=== PATIENT | male | born 1965 | race African-American/Black ===

== ENCOUNTER 2017-05-10 13:55 | Inpatient (IN) | payer OTHER ==
[2017-05-10 16:52] VITALS: BMI 31.4
--- NOTE | 2017-05-10 18:09 | HP ---
CIWA Score - CIWA Score Nausea/Vomitin-Mild Nausea/No Vomiting Muscle Tremors: 4-Moderate,w/Arms Extend Anxiety: 3 Agitation: 4-Moderately Restless Paroxysmal Sweats: 1-Minimal Palms Moist Orientation: 1-Uncertain about Date Tacttile Disturbances: 0-None Auditory Disturbances: 0-None Visual Disturbances: 0-None Headache: 0-None Present CIWA-Ar Total Score: 14 Admission ROS BHS - HPI Chief Complaint: withdrawal sx Allergies/Adverse Reactions: Allergies Allergy/AdvReac Type Severity Reaction Status Date / Time benztropine mesylate Allergy Severe seizure Verified 05/10/17 18:04 [From Cogentin] haloperidol [From Haldol] Allergy Severe seizure Verified 05/10/17 18:04 haloperidol lactate Allergy Severe seizure Verified 05/10/17 18:04 [From Haldol] History of Present Illness: 51 years old male with long history of alcohol pcp nicotine dependence has hypertension and tooth filling out last month, bipolar ii is admitted to detox Exam Limitations: No Limitations - Ebola screening Have you traveled outside of the country in the last 21 days: No (N) Have you had contact with anyone from an Ebola affected area: No Have you been sick,other than usual withdrawal symptoms: No Do you have a fever: No - Review of Systems Constitutional: Weight Stable EENT: reports: Dental Problems (right lower tooth filling out) Respiratory: reports: No Symptoms reported Cardiac: reports: No Symptoms Reported GI: reports: Nausea, Poor Fluid Intake, Abdominal cramping : reports: No Symptoms Reported Musculoskeletal: reports: No Symptoms Reported Integumentary: reports: No Symptoms Reported Neuro: reports: Tremors Endocrine: reports: No Symptoms Reported Hematology: reports: No Symptoms Reported Psychiatric: reports: Judgement Intact, Anxious, Depressed Other Systems: Reviewed and Negative Patient History - Patient Medical History Hx Anemia: No Hx Asthma: No Hx Chronic Obstructive Pulmonary Disease (COPD): No Hx Cancer: No Hx Cardiac Disorders: No Hx Congestive Heart Failure: No Hx Hypertension: Yes Hx Hypercholesterolemia: No Hx Pacemaker: No HX Cerebrovascular Accident: No Hx Seizures: No Hx Dementia: No Hx Diabetes: No Hx Gastrointestinal Disorders: No Hx Liver Disease: No Hx Genitourinary Disorders: No Hx Sexually Transmitted Disorders: No Hx Renal Disease (ESRD): No Hx Thyroid Disease: No Hx Human Immunodeficiency Virus (HIV): No Hx Hepatitis C: No Hx Depression: No Hx Suicide Attempt: Yes (1990 jump from bridge) Hx Bipolar Disorder: Yes Hx Schizophrenia: No - Patient Surgical History Past Surgical History: Yes Hx Neurologic Surgery: No Hx Cataract Extraction: No Hx Cardiac Surgery: No Hx Lung Surgery: No Hx Breast Surgery: No Hx Breast Biopsy: No Hx Abdominal Surgery: Yes (colon ca 2011) Hx Appendectomy: No Hx Cholecystectomy: No Hx Genitourinary Surgery: No Hx Orthopedic Surgery: No Anesthesia Reaction: No - PPD History Previous Implant?: Yes Documented Results: Negative w/o proof Implanted On Prior [facility] Admission?: No PPD to be Administered?: Yes - Smoking Cessation Smoking history: Current every day smoker Have you smoked in the past 12 months: Yes Aproximately how many cigarettes per day: 10 Cigars Per Day: 0 Hx Chewing Tobacco Use: No Initiated information on smoking cessation: Yes 'Breaking Loose' booklet given: 05/10/17 - Substance & Tx. History Hx Alcohol Use: Yes Hx Substance Use: No Substance Use Type: Alcohol Hx Substance Use Treatment: No Family Disease History - Family Disease History Family Disease History: Heart Disease: Father (), Mother (), Other: Father, Mother Admission Physical Exam BHS - Vital Signs Vital Signs: Vital Signs - 24 hr 05/10/17 16:50 Temperature 97.6 F Pulse Rate 109 H Respiratory 203 H Rate Blood Pressure 144/82 - Physical General Appearance: Yes: Nourished, Appropriately Dressed, Alcohol on Breath, Tremorous, Irritable, Sweating, Anxious HEENTM: Yes: Hearing grossly Normal, Normal ENT Inspection, Normocephalic, Normal Voice Respiratory: Yes: Chest Non-Tender, Lungs Clear, Normal Breath Sounds, No Respiratory Distress, No Accessory Muscle Use Neck: Yes: Supple, Trachea in good position Breast: Yes: Breasts Symetrical Cardiology: Yes: Regular Rhythm, S1, S2, Tachycardia (pcp) Abdominal: Yes: Normal Bowel Sounds, Non Tender, Soft Genitourinary: Yes: Within Normal Limits Back: Yes: Normal Inspection Musculoskeletal: Yes: full range of Motion, Gait Steady Extremities: Yes: Normal Range of Motion, Non-Tender, Tremors Neurological: Yes: Alert, Motor Strength 5/5, Normal Response, Depressed Affect Integumentary: Yes: Warm Lymphatic: Yes: Within Normal Limits - Diagnostic (1) Alcohol dependence with uncomplicated withdrawal Current Visit: Yes Status: Acute (2) Hypertension Current Visit: Yes Status: Chronic Qualifiers: Hypertension type: essential hypertension Qualified Code(s): I10 - Essential (primary) hypertension (3) Chronic low back pain Current Visit: Yes Status: Chronic Qualifiers: Back pain laterality: bilateral Sciatica presence: without sciatica Qualified Code(s): M54.5 - Low back pain; G89.29 - Other chronic pain; G89.29 - Other chronic pain (4) Bipolar II disorder Current Visit: Yes Status: Suspected (5) History of colon cancer Current Visit: No Status: Resolved (6) Nicotine dependence Current Visit: Yes Status: Acute Qualifiers: Nicotine product type: cigarettes Substance use status: in withdrawal Qualified Code(s): F17.213 - Nicotine dependence, cigarettes, with withdrawal Cleared for Admission S - Detox or Rehab [facility] Level of Care: Medically Managed Detox Regimen/Protocol: Librium [facility] Breath Alcohol Content Breath Alcohol Content: 0.186 Urine Drug Screen - Results Drug Screen Negative: No Urine Drug Screen Results: PCP-Phencyclidine
[2017-05-10] MEDS ORDERED: chlordiazePOXIDE HCL 25 MG CAPSULE PO PRN (18:16)
[2017-05-10] MEDS ORDERED: guaiFENesin/D-METHORPHAN HB 10 ML UNIT-DOSE CUPS PO PRN (18:16)
[2017-05-10] MEDS ORDERED: MENTHOL/PHENOL 1 EACH UD MM PRN (18:16)
[2017-05-10] MEDS ORDERED: MAGNESIUM CITRATE 300 ML BOTTLE PO PRN (18:16)
[2017-05-10] MEDS ORDERED: P-EPHED 60MG/TRIPROLIDI 2.5MG TABLET PO PRN (18:16)
[2017-05-10] MEDS ORDERED: NICOTINE POLACRILEX 2 MG GUM BUC PRN (18:16)
[2017-05-10] MEDS ORDERED: ACETAMINOPHEN 325 MG TABLET (FP) PO PRN (18:16)
[2017-05-10] MEDS ORDERED: MAG HYDROX/AL HYDROX/SIMETH 30 ML UNIT-DOSE CUP PO PRN (18:16)
[2017-05-10] MEDS ORDERED: IBUPROFEN 400 MG TABLET (FP) PO PRN (18:16)
[2017-05-10] MEDS ORDERED: MAGNESIUM HYDROX 2400MG/30ML ORAL SUSPENSION 30 ML CUP PO PRN (18:16)
[2017-05-10] MEDS ORDERED: LIDOCAINE VISCOUS 2% ORAL/TOP 20 ML UNIT-DOSE CUP MM PRN (18:26)
[2017-05-10] MEDS: amLODIPine BESYLATE 10 MG TABLET (FP) PO SCH (21:20)
[2017-05-10] MEDS: THIAMINE HCL 100 MG TABLET (FP) PO SCH (21:20)
[2017-05-10] MEDS: chlordiazePOXIDE HCL 25 MG CAPSULE PO SCH (22:00)
[2017-05-10 22:28] LABS: URINE APPEARANCE CLEAR; URINE BILIRUBIN NEGATIVE (NEGATIVE); URINE BLOOD NEGATIVE (NEGATIVE); URINE COLOR YELLOW; URINE GLUCOSE (UA) NEGATIVE (NEGATIVE); URINE KETONE NEGATIVE (NEGATIVE); URINE NITRITE NEGATIVE (NEGATIVE); URINE PROTEIN NEGATIVE (NEGATIVE); URINE UROBILINOGEN NEGATIVE mg/dL (0.2-1.0)
[2017-05-10] MEDS: MINERAL OIL/PETROLAT/WATER TOPICAL CREAM 113 GM JAR TP SCH (23:15)
[2017-05-11] MEDS: chlordiazePOXIDE HCL 25 MG CAPSULE PO SCH ×4 (05:02→22:16)
--- NOTE | 2017-05-11 08:37 | CONSULT ---
[facility] Psychiatric Consult - Data Date of interview: 05/11/17 Admission source: [facility] Identifying data: This is 51 years old male withpsychiatric hospitalization history,mhistory of Bipolar disorder, intoxicated with: Alcohol, Nicotine Substance Abuse History: - Smoking Cessation. Smoking history: Current every day smoker. Have you smoked in the past 12 months: Yes. Aproximately how many cigarettes per day: 10. Cigars Per Day: 0. Hx Chewing Tobacco Use: No. Initiated information on smoking cessation: Yes. 'Breaking Loose' booklet given : 05/10/17. - Substance & Tx. History. Hx Alcohol Use: Yes. Hx Substance Use : No. Substance Use Type: Alcohol. Hx Substance Use Treatment: No Medical History: HTN, LBP, History OF Colon Cancer Psychiatric History: Patiebt reports history of Bipolar Disorder with most recent psychiatric admission few months ago at [facility];, reports taking prior to admission: Seroquel 200mg po qhs. Lexapro 20mg poqd Physical/Sexual Abuse/Trauma History: Denies Additional Comment: Seroquel 200mg po qhs. Lexapro 20mg poqd Mental Status Exam - Mental Status Exam Alert and Oriented to: Person Cognitive Function: Fair Patient Appearance: Unkempt Mood: Sad Affect: Flat Patient Behavior: Sedated Speech Pattern: Delayed Voice Loudness: Mildly Soft/Quiet Thought Process: Circumstantial Thought Disorder: Being Controlled Hallucinations: Denies Suicidal Ideation: Denies Homicidal Ideation: Denies Insight/Judgement: Fair Sleep: Difficulty falling asleep Appetite: Fair Muscle strength/Tone: Mild Hypotonicity Gait/Station: Shuffling Additional Comments: Seroquel 200mg po qhs. Lexapro 20mg poqd Psychiatric Findings - Problem List ([place] 1, 2,3) (1) Alcohol dependence with uncomplicated withdrawal Current Visit: Yes Status: Acute (2) Nicotine dependence Current Visit: Yes Status: Acute Qualifiers: Nicotine product type: cigarettes Substance use status: in withdrawal Qualified Code(s): F17.213 - Nicotine dependence, cigarettes, with withdrawal (3) Bipolar II disorder Current Visit: Yes Status: Suspected (4) Alcohol dependence Current Visit: No Status: Acute (5) Bipolar disorder Current Visit: No Status: Acute (6) Drug-induced mood disorder Current Visit: No Status: Acute - Initial Treatment Plan Initial Treatment Plan: Seroquel 200mg po qhs. Lexapro 20mg poqd
[2017-05-11] MEDS ORDERED: TRIMETHOBENZAMIDE HCL 200MG/2ML INJ IM PRN (09:22)
[2017-05-11] MEDS ORDERED: TRIMETHOBENZAMIDE HCL 200MG/2ML INJ IM ONE (09:30)
[2017-05-11 10:17] LABS: MCHC 33.8 g/dl (32.0-35.9); MEAN CELL VOLUME 100.5 fl (80-96); MEAN PLT VOLUME 8.3 fl (7.5-11.1); PLATELET COUNT 136 K/MM3 (134-434); RDW 15.6 % (11.9-15.9)
[2017-05-11 10:28] LABS: WHITE BLOOD COUNT 1.6 K/mm3 (4.0-10.0)
[2017-05-11 11:12] LABS: ALBUMIN 3.1 g/dl (3.4-5.0); ALK PHOS 176 U/L (45-117); ANION GAP 11 (8-16); BILIRUBIN,TOTAL 1.2 mg/dL (0.2-1.0); CALCIUM 8.3 mg/dL (8.5-10.1); CO2 25 mmol/L (21-32); GLUCOSE,RANDOM 80 mg/dL (74-106); SGOT/AST 217 U/L (15-37); SGPT/ALT 46 U/L (12-78); TOT PROT 6.5 g/dl (6.4-8.2)
[2017-05-11 11:18] LABS: URINE LEUK ESTERASE Negative (NEGATIVE)
[2017-05-11] MEDS: ESCITALOPRAM OXALATE 20 MG TABLET (FP) PO SCH (11:29)
[2017-05-11] MEDS: NICOTINE 14 MG/24 HOURS TOPICAL PATCH TD SCH (11:29)
[2017-05-11] MEDS: PRENATAL VITAMINS W/ FOLIC ACID TABLET (FP) PO SCH (11:29)
[2017-05-11] MEDS: LISINOPRIL 10 MG TABLET (FP) PO SCH (11:32)
--- NOTE | 2017-05-11 12:37 | EKG ---
Test Reason : Blood Pressure : / mmHG Vent. Rate : 093 BPM Atrial Rate : 093 BPM P-R Int : 150 ms QRS Dur : 086 ms QT Int : 360 ms P-R-T Axes : 065 055 061 degrees QTc Int : 447 ms NORMAL SINUS RHYTHM MINIMAL VOLTAGE CRITERIA FOR LVH, MAY BE NORMAL VARIANT BORDERLINE ECG NO PREVIOUS ECGS AVAILABLE Confirmed by KHURRAM LINCOLN MD ([id number]) on 05/11/2017 12:36:38 PM Referred By: Confirmed By:KHURRAM LINCOLN MD
--- NOTE | 2017-05-11 14:25 | PN ---
[facility] CIWA - CIWA Score Nausea/Vomitin Muscle Tremors: None Anxiety: 4-Mod. Anxious/Guarded Agitation: 1-Slight > Activity Paroxysmal Sweats: 3 Orientation: 0-Oriented Tacttile Disturbances: 3-Moderate Itch/Numb/Burn Auditory Disturbances: 0-None Visual Disturbances: 2-Mild Sensitivity Headache: 0-None Present CIWA-Ar Total Score: 19 BHS Progress Note (SOAP) Subjective: Interrupted Sleep, Vomiting, Diarrhea, Anxious, Stomach Cramping, Body Aches. Objective: PT. A & O X 3, OBSERVED AMBULATING ON UNIT. NO ACUTE DISTRESS. 05/11/17 14:20 Vital Signs Temperature 97.3 F L 05/11/17 13:17 Pulse Rate 110 H 05/11/17 13:17 Respiratory Rate 20 05/11/17 13:17 Blood Pressure 138/89 05/11/17 13:17 O2 Sat by Pulse Oximetry (%) Laboratory Tests 05/10/17 05/11/17 05/11/17 19:13 04:00 04:00 WBC 1.6 L* RBC 3.59 L Hgb 12.2 Hct 36.1 MCV 100.5 H MCH 34.0 H MCHC 33.8 RDW 15.6 Plt Count 136 MPV 8.3 Sodium 136 Potassium 3.9 Chloride 100 Carbon Dioxide 25 Anion Gap 11 BUN 12 Creatinine 1.0 Creat Clearance w eGFR > 60 Random Glucose 80 Calcium 8.3 L Total Bilirubin 1.2 H AST 217 H ALT 46 Alkaline Phosphatase 176 H Total Protein 6.5 Albumin 3.1 L Urine Color Yellow Urine Appearance Clear Urine pH 5.0 Ur Specific [place] 1.016 Urine Protein Negative Urine Glucose (UA) Negative Urine Ketones Negative Urine Blood Negative Urine Nitrite Negative Urine Bilirubin Negative Urine Urobilinogen Negative Ur Leukocyte Esterase Negative RPR Titer 05/11/17 04:00 WBC RBC Hgb Hct MCV MCH MCHC RDW Plt Count MPV Sodium Potassium Chloride Carbon Dioxide Anion Gap BUN Creatinine Creat Clearance w eGFR Random Glucose Calcium Total Bilirubin AST ALT Alkaline Phosphatase Total Protein Albumin Urine Color Urine Appearance Urine pH Ur Specific [place] Urine Protein Urine Glucose (UA) Urine Ketones Urine Blood Urine Nitrite Urine Bilirubin Urine Urobilinogen Ur Leukocyte Esterase RPR Titer Nonreactive LABS NOTED. WHEN ASKED, PATIENT REPORTS HISTORY OF LOW WBC COUNT. 05/11/17 14:23 Assessment: 05/11/17 14:20 WITHDRAWAL SYMPTOMS. LEUKOPENIA. 05/11/17 14:23 Plan: CONTINUE DETOX. TIGAN IM FOR NAUSEA / VOMITING. LISINOPRIL, 10 MG PO DAILY PERSISTENTLY ELEVATED BP. PRN IMMODIUM FOR DIARRHEA.
[2017-05-11] MEDS ORDERED: ONDANSETRON *ODT* 4 MG TABLET SL ONE ×2 (18:15)
[2017-05-11] MEDS: QUEtiapine FUMARATE 200 MG TABLET PO SCH (22:13)
[2017-05-11] MEDS: THIAMINE HCL 100 MG TABLET (FP) PO SCH (22:13)
[2017-05-11] MEDS: amLODIPine BESYLATE 10 MG TABLET (FP) PO SCH (22:13)
[2017-05-11] MEDS: MINERAL OIL/PETROLAT/WATER TOPICAL CREAM 113 GM JAR TP SCH (22:14)
[2017-05-12] MEDS: chlordiazePOXIDE HCL 25 MG CAPSULE PO SCH ×3 (06:47→17:01)
[2017-05-12] MEDS: PRENATAL VITAMINS W/ FOLIC ACID TABLET (FP) PO SCH (10:13)
[2017-05-12] MEDS: LISINOPRIL 10 MG TABLET (FP) PO SCH (10:13)
[2017-05-12] MEDS: ESCITALOPRAM OXALATE 20 MG TABLET (FP) PO SCH (10:13)
[2017-05-12] MEDS: NICOTINE 14 MG/24 HOURS TOPICAL PATCH TD SCH (10:14)
[2017-05-12] MEDS: LOPERAMIDE HCL 2 MG CAPSULE PO PRN ×2 (10:58→20:02)
--- NOTE | 2017-05-12 13:40 | PN ---
S CIWA - CIWA Score Nausea/Vomitin Muscle Tremors: None Anxiety: 4-Mod. Anxious/Guarded Agitation: 3 Paroxysmal Sweats: 3 Orientation: 0-Oriented Tacttile Disturbances: 2-Mild Itch/Numbness/Burn Auditory Disturbances: 0-None Visual Disturbances: 0-None Headache: 3-Moderate CIWA-Ar Total Score: 20 BHS Progress Note (SOAP) Subjective: Stomach Cramping, Vomiting, Diarrhea, H/A, Body Aches, Sweating. Objective: PT. A & O X 3, OBSERVED AMBULATING ON UNIT. NO ACUTE DISTRESS. 05/12/17 13:38 Vital Signs Temperature 97.9 F 05/12/17 13:27 Pulse Rate 99 H 05/12/17 13:27 Respiratory Rate 18 05/12/17 13:27 Blood Pressure 113/78 05/12/17 13:27 O2 Sat by Pulse Oximetry (%) Laboratory Tests 05/10/17 05/11/17 05/11/17 19:13 04:00 04:00 WBC 1.6 L* RBC 3.59 L Hgb 12.2 Hct 36.1 MCV 100.5 H MCH 34.0 H MCHC 33.8 RDW 15.6 Plt Count 136 MPV 8.3 Sodium 136 Potassium 3.9 Chloride 100 Carbon Dioxide 25 Anion Gap 11 BUN 12 Creatinine 1.0 Creat Clearance w eGFR > 60 Random Glucose 80 Calcium 8.3 L Total Bilirubin 1.2 H AST 217 H ALT 46 Alkaline Phosphatase 176 H Total Protein 6.5 Albumin 3.1 L Urine Color Yellow Urine Appearance Clear Urine pH 5.0 Ur Specific [place] 1.016 Urine Protein Negative Urine Glucose (UA) Negative Urine Ketones Negative Urine Blood Negative Urine Nitrite Negative Urine Bilirubin Negative Urine Urobilinogen Negative Ur Leukocyte Esterase Negative RPR Titer 05/11/17 04:00 WBC RBC Hgb Hct MCV MCH MCHC RDW Plt Count MPV Sodium Potassium Chloride Carbon Dioxide Anion Gap BUN Creatinine Creat Clearance w eGFR Random Glucose Calcium Total Bilirubin AST ALT Alkaline Phosphatase Total Protein Albumin Urine Color Urine Appearance Urine pH Ur Specific [place] Urine Protein Urine Glucose (UA) Urine Ketones Urine Blood Urine Nitrite Urine Bilirubin Urine Urobilinogen Ur Leukocyte Esterase RPR Titer Nonreactive LABS NOTED. Assessment: 05/12/17 13:38 WITHDRAWAL SYMPTOMS. LEUKOPENIA. 05/12/17 13:40 Plan: CONTINUE DETOX. PRN TIGAN IM FOR NAUSEA / VOMITING.
[2017-05-12] MEDS: THIAMINE HCL 100 MG TABLET (FP) PO SCH (22:16)
[2017-05-12] MEDS: amLODIPine BESYLATE 10 MG TABLET (FP) PO SCH (22:16)
[2017-05-12] MEDS: QUEtiapine FUMARATE 200 MG TABLET PO SCH (22:17)
[2017-05-12] MEDS: chlordiazePOXIDE 5 MG CAPSULE PO SCH (22:17)
[2017-05-12] MEDS: MINERAL OIL/PETROLAT/WATER TOPICAL CREAM 113 GM JAR TP SCH (22:17)
[2017-05-13] MEDS: chlordiazePOXIDE 5 MG CAPSULE PO SCH ×3 (05:57→17:15)
[2017-05-13] MEDS: ESCITALOPRAM OXALATE 20 MG TABLET (FP) PO SCH (10:13)
[2017-05-13] MEDS: PRENATAL VITAMINS W/ FOLIC ACID TABLET (FP) PO SCH (10:13)
[2017-05-13] MEDS: LISINOPRIL 10 MG TABLET (FP) PO SCH (10:13)
[2017-05-13] MEDS: NICOTINE 14 MG/24 HOURS TOPICAL PATCH TD SCH (10:13)
[2017-05-13] MEDS: LOPERAMIDE HCL 2 MG CAPSULE PO PRN (10:15)
[2017-05-13] MEDS ORDERED: CYCLOBENZAPRINE HCL 5 MG TABLET PO PRN (11:29)
--- NOTE | 2017-05-13 12:29 | PN ---
BHS Progress Note (SOAP) Subjective: Anxious, Body Aches, Sweating. Pt. reports that Nausea /Vomiting has now improved significantly. Objective: PT. A & O X 3, OBSERVED AMBULATING ON UNIT. NO ACUTE DISTRESS. 05/13/17 12:28 Vital Signs Temperature 96.9 F L 05/13/17 09:26 Pulse Rate 114 H 05/13/17 09:26 Respiratory Rate 16 05/13/17 09:26 Blood Pressure 83/56 05/13/17 09:26 O2 Sat by Pulse Oximetry (%) Laboratory Tests 05/10/17 05/11/17 05/11/17 19:13 04:00 04:00 WBC 1.6 L* RBC 3.59 L Hgb 12.2 Hct 36.1 MCV 100.5 H MCH 34.0 H MCHC 33.8 RDW 15.6 Plt Count 136 MPV 8.3 Sodium 136 Potassium 3.9 Chloride 100 Carbon Dioxide 25 Anion Gap 11 BUN 12 Creatinine 1.0 Creat Clearance w eGFR > 60 Random Glucose 80 Calcium 8.3 L Total Bilirubin 1.2 H AST 217 H ALT 46 Alkaline Phosphatase 176 H Total Protein 6.5 Albumin 3.1 L Urine Color Yellow Urine Appearance Clear Urine pH 5.0 Ur Specific [place] 1.016 Urine Protein Negative Urine Glucose (UA) Negative Urine Ketones Negative Urine Blood Negative Urine Nitrite Negative Urine Bilirubin Negative Urine Urobilinogen Negative Ur Leukocyte Esterase Negative RPR Titer 05/11/17 04:00 WBC RBC Hgb Hct MCV MCH MCHC RDW Plt Count MPV Sodium Potassium Chloride Carbon Dioxide Anion Gap BUN Creatinine Creat Clearance w eGFR Random Glucose Calcium Total Bilirubin AST ALT Alkaline Phosphatase Total Protein Albumin Urine Color Urine Appearance Urine pH Ur Specific [place] Urine Protein Urine Glucose (UA) Urine Ketones Urine Blood Urine Nitrite Urine Bilirubin Urine Urobilinogen Ur Leukocyte Esterase RPR Titer Nonreactive LABS NOTED. PATIENT REPORTS HISTORY OF LOW WBC COUNT. RESULTS OF REPEAT CMP PENDING. 05/13/17 12:30 Assessment: 05/13/17 12:28 WITHDRAWAL SYMPTOMS. Plan: CONTINUE DETOX. PRN FLEXERIL FOR BODY ACHES / MUSCLE SPASMS. INCREASE DAILY PO FLUID INTAKE.
[2017-05-13 15:32] LABS: ALBUMIN 2.9 g/dl (3.4-5.0); ANION GAP 12 (8-16); BILIRUBIN,TOTAL 0.8 mg/dL (0.2-1.0); CALCIUM 8.6 mg/dL (8.5-10.1); CO2 23 mmol/L (21-32); CREATININE 1.1 mg/dL (0.7-1.3); GLUCOSE,RANDOM 106 mg/dL (74-106); SGOT/AST 102 U/L (15-37); SGPT/ALT 35 U/L (12-78); TOT PROT 6.3 g/dl (6.4-8.2)
[2017-05-13 15:33] LABS: ALK PHOS 139 U/L (45-117)
[2017-05-13] MEDS: chlordiazePOXIDE HCL 10 MG CAPSULE PO SCH (22:11)
[2017-05-13] MEDS: MINERAL OIL/PETROLAT/WATER TOPICAL CREAM 113 GM JAR TP SCH (22:11)
[2017-05-13] MEDS: amLODIPine BESYLATE 10 MG TABLET (FP) PO SCH (22:11)
[2017-05-13] MEDS: QUEtiapine FUMARATE 200 MG TABLET PO SCH (22:11)
[2017-05-13] MEDS: THIAMINE HCL 100 MG TABLET (FP) PO SCH (22:11)
[2017-05-13] MEDS: POTASSIUM CHLORIDE TABS 20 MEQ TABLET.ER (FP) PO SCH (23:04)
[2017-05-14] MEDS: chlordiazePOXIDE HCL 10 MG CAPSULE PO SCH (06:21)
[2017-05-14 06:36] VITALS: BP 100/66; PULSE 79; TEMP 96.7
[2017-05-14] MEDS: POTASSIUM CHLORIDE TABS 20 MEQ TABLET.ER (FP) PO SCH (08:46)
[2017-05-14] MEDS: PRENATAL VITAMINS W/ FOLIC ACID TABLET (FP) PO SCH (08:46)
--- NOTE | 2017-05-14 11:34 | DS ---
[facility] Detox Discharge Summary Admission Date: 05/10/17 Discharge Date: 05/14/17 - History Present History: Alcohol Dependence Pertinent Past History: Chronic LBP HTN - Physical Exam Results Vital Signs: Vital Signs Temperature 96.7 F L 05/14/17 06:35 Pulse Rate 79 05/14/17 06:35 Respiratory Rate 18 05/14/17 06:35 Blood Pressure 100/66 05/14/17 06:35 O2 Sat by Pulse Oximetry (%) Pertinent Admission Physical Exam Findings: Withdrawal symptoms Laboratory Tests 05/10/17 05/11/17 05/11/17 19:13 04:00 04:00 WBC 1.6 L* RBC 3.59 L Hgb 12.2 Hct 36.1 MCV 100.5 H MCH 34.0 H MCHC 33.8 RDW 15.6 Plt Count 136 MPV 8.3 Sodium 136 Potassium 3.9 Chloride 100 Carbon Dioxide 25 Anion Gap 11 BUN 12 Creatinine 1.0 Creat Clearance w eGFR > 60 Random Glucose 80 Calcium 8.3 L Total Bilirubin 1.2 H AST 217 H ALT 46 Alkaline Phosphatase 176 H Total Protein 6.5 Albumin 3.1 L Urine Color Yellow Urine Appearance Clear Urine pH 5.0 Ur Specific [place] 1.016 Urine Protein Negative Urine Glucose (UA) Negative Urine Ketones Negative Urine Blood Negative Urine Nitrite Negative Urine Bilirubin Negative Urine Urobilinogen Negative Ur Leukocyte Esterase Negative RPR Titer 05/11/17 05/13/17 05/13/17 04:00 10:50 10:50 WBC RBC Hgb Hct MCV MCH MCHC RDW Plt Count MPV Sodium 141 Potassium 3.2 L Chloride 106 Carbon Dioxide 23 Anion Gap 12 BUN 7 D Creatinine 1.1 Creat Clearance w eGFR > 60 Random Glucose 106 D Calcium 8.6 Total Bilirubin 0.8 D AST 102 H D Cancelled ALT 35 D Alkaline Phosphatase 139 H D Cancelled Total Protein 6.3 L Albumin 2.9 L Urine Color Urine Appearance Urine pH Ur Specific [place] Urine Protein Urine Glucose (UA) Urine Ketones Urine Blood Urine Nitrite Urine Bilirubin Urine Urobilinogen Ur Leukocyte Esterase RPR Titer Nonreactive Labs noted - Treatment Hospital Course: Detox Protocol Followed, Detoxed Safely, Responded well, Discharged Condition Good - Medication Discharge Medications: Ambulatory Orders Amlodipine Besylate [Norvasc -] 10 mg PO DAILY 05/10/17 Tramadol HCl [Tramadol HCl ER] 100 mg PO BID 05/10/17 Escitalopram Oxalate [Lexapro -] 20 mg PO DAILY #30 tablet 05/11/17 Quetiapine Fumarate [Seroquel -] 200 mg PO HS #30 tab 05/11/17 - Diagnosis (1) Alcohol dependence with uncomplicated withdrawal Status: Acute (2) Bipolar disorder Status: Chronic (3) Nicotine dependence Status: Chronic Qualifiers: Nicotine product type: cigarettes Substance use status: in withdrawal Qualified Code(s): F17.213 - Nicotine dependence, cigarettes, with withdrawal (4) Chronic low back pain Status: Chronic Qualifiers: Back pain laterality: bilateral Sciatica presence: without sciatica Qualified Code(s): M54.5 - Low back pain; G89.29 - Other chronic pain; G89.29 - Other chronic pain (5) Hypertension Status: Chronic Qualifiers: Hypertension type: essential hypertension Qualified Code(s): I10 - Essential (primary) hypertension - AMA Did Patient Leave Against Medical Advice: No (F/U with PCP in 1 week)
== END 2017-05-14 08:50 | disposition home or self-care (01) | DRG 775 ==
LOC: YASAS 13:55 → Y3N 18:51
PROVIDERS: ADMIT Internal Medicine; ATTEND Internal Medicine
PROC: HZ2ZZZZ Detoxification Services for Substance Abuse Treatment (ICD-10-PCS; principal; 2017-05-10)
DX: F10.230 Alcohol dependence with withdrawal, uncomplicated (principal); F17.213 Nicotine dependence, cigarettes, with withdrawal; F31.9 Bipolar disorder, unspecified; F19.24 Other psychoactive substance dependence with psychoactive substance-induced mood disorder; I10 Essential (primary) hypertension; M54.5 Low back pain; G89.29 Other chronic pain; Z85.038 Personal history of other malignant neoplasm of large intestine; Z91.5 Personal history of self-harm
CPT/HCPCS: 36415; 80053; 81003; 85027; 86593; 93005; 93010

== ENCOUNTER 2024-06-18 14:47 | Inpatient (IN) | payer OTHER ==
[2024-06-18 16:00] VITALS: BMI 32.0
[2024-06-18] MEDS ORDERED: BENZONATATE 200 MG CAPSULE PO PRN (16:53)
[2024-06-18] MEDS ORDERED: MAGNESIUM HYDROX 2400MG/30ML ORAL SUSPENSION 30 ML CUP PO PRN (16:53)
[2024-06-18] MEDS ORDERED: POLYETHYLENE GLYCOL (HEALTHYLAX) 3350 17 GM PACKET PO PRN (16:53)
[2024-06-18] MEDS ORDERED: DOCUSATE SODIUM 100 MG CAPSULE (FP) PO PRN (16:53)
[2024-06-18] MEDS ORDERED: guaiFENesin 600 MG TABLET.ER (FP) PO PRN (16:53)
[2024-06-18] MEDS ORDERED: NICOTINE POLACRILEX 2 MG GUM BUC PRN (16:53)
[2024-06-18] MEDS ORDERED: BISACODYL 5 MG TABLET.DR (FP) PO PRN (16:53)
[2024-06-18] MEDS ORDERED: NICOTINE POLACRILEX 2 MG LOZENGE BC PRN (16:53)
[2024-06-18] MEDS ORDERED: NALOXONE (NARCAN) HCL 4 MG/0.1 ML SPRAY NS PRN (16:53)
[2024-06-18] MEDS ORDERED: METOPROLOL TARTRATE 25 MG TABLET (FP) ONE (18:51)
[2024-06-18] MEDS: METOPROLOL TARTRATE 25 MG TABLET (FP) PO ONE (18:54)
[2024-06-18] MEDS: THIAMINE 100 MG TABLET PO SCH (21:06)
[2024-06-18] MEDS: MELATONIN 5 MG TABLETS PO SCH (21:07)
[2024-06-18] MEDS: hydrOXYzine PAMOATE 25 MG CAPSULE (FP) PO PRN (21:08)
[2024-06-18] MEDS: TUBERCULIN PPD 5 TU/0.1ML SYRINGE (IN PATIENT USE ONLY) ID ONE (22:04)
[2024-06-18] MEDS ORDERED: TUBERCULIN PPD 5 TU/0.1ML VIAL ID ONE (22:38)
[2024-06-19] MEDS: hydrOXYzine PAMOATE 25 MG CAPSULE (FP) PO PRN (07:45)
[2024-06-19] MEDS: QUEtiapine FUMARATE 50 MG TABLET PO SCH (09:45)
[2024-06-19] MEDS: PRENATAL VITAMINS W/ FOLIC ACID TABLET (FP) PO SCH (09:45)
[2024-06-19] MEDS: amLODIPine BESYLATE 10 MG TABLET (FP) PO SCH (09:45)
[2024-06-19] MEDS: PANTOPRAZOLE 40 MG TABLET PO SCH (09:45)
[2024-06-19 10:44] LABS: CHLORIDE 111 mmol/L (98-107); SODIUM 143 mmol/L (136-145)
[2024-06-19 10:46] LABS: CALCIUM 8.5 mg/dL (8.5-10.1)
[2024-06-19 10:47] LABS: ANION GAP 5 mmol/L (4-13); BLOOD UREA NITROGEN 17.8 mg/dL (7-18); CO2 27 mmol/L (21-32); GLUCOSE,RANDOM 110 mg/dL (74-106)
[2024-06-19 10:49] LABS: SGPT/ALT 15 U/L (13-61)
[2024-06-19 10:50] LABS: CREATININE 0.9 mg/dL (0.55-1.3); SGOT/AST 23 U/L (15-37)
[2024-06-19 10:51] LABS: BILIRUBIN,TOTAL 0.3 mg/dL (0.2-1)
[2024-06-19 10:52] LABS: ALK PHOS 81 U/L (45-117)
[2024-06-19 10:59] LABS: HEMATOCRIT 36.4 % (35.4-49); HEMOGLOBIN 12.4 GM/dL (11.7-16.9); MCH 31.4 pg (25.7-33.7); MCHC 34.1 g/dl (32.0-35.9); MEAN PLT VOLUME 8.3 fl (7.5-11.1); PLATELET COUNT 207 10^3/uL (134-434); RBC 3.96 M/mm3 (4.00-5.60); RDW 17.7 % (11.9-15.9); WHITE BLOOD COUNT 2.4 K/mm3 (4.0-10.0)
[2024-06-19] MEDS: MIRTAZAPINE 15 MG TABLET (FP) PO SCH (21:22)
[2024-06-19] MEDS: QUEtiapine FUMARATE 100 MG TABLET (FP) PO SCH (21:23)
[2024-06-20 11:55] LABS: PH,URINE 7.5 (5.0-8.0); URINE APPEARANCE CLEAR; URINE BILIRUBIN NEGATIVE (NEGATIVE); URINE COLOR YELLOW; URINE GLUCOSE (UA) NEGATIVE (NEGATIVE); URINE KETONE TRACE (NEGATIVE); URINE LEUK ESTERASE NEGATIVE (NEGATIVE); URINE NITRITE NEGATIVE (NEGATIVE); URINE PROTEIN NEGATIVE (NEGATIVE)
[2024-06-20] MEDS ORDERED: propRANOLol HCL 10 MG TABLET PO ONE (20:46)
[2024-06-20] MEDS: propRANOLol HCL 10 MG TABLET PO ONE (22:20)
[2024-06-21] MEDS: MAG HYDROX/AL HYDROX/SIMETH 30 ML UNIT-DOSE CUP PO PRN (14:41)
[2024-06-21] MEDS: BENZOCAINE/MENTHOL (CHLORASEPTIC ) LOZENGE MM PRN (14:49)
[2024-06-21] MEDS: QUEtiapine FUMARATE 200 MG TABLET PO SCH (21:29)
[2024-06-22] MEDS: IBUPROFEN 600 MG TABLET (FP) PO PRN (08:57)
[2024-06-22] MEDS: QUEtiapine FUMARATE 50 MG TABLET PO SCH (10:00)
[2024-06-22] MEDS: ACETAMINOPHEN 325 MG TABLET (FP) PO PRN (15:58)
[2024-06-22] MEDS: MIRTAZAPINE 15 MG TABLET (FP) PO SCH (21:20)
[2024-06-23] MEDS: LOPERAMIDE HCL 2 MG CAPSULE PO PRN (03:39)
[2024-06-23] MEDS: MIRTAZAPINE 15 MG TABLET (FP) PO SCH (21:20)
[2024-06-24] MEDS: QUEtiapine FUMARATE 100 MG TABLET (FP) PO SCH (12:24)
[2024-06-25] MEDS ORDERED: ONDANSETRON *ODT* 4 MG TABLET SL PRN (11:30)
[2024-06-26] MEDS: IBUPROFEN 400 MG TABLET (FP) PO PRN (17:58)
[2024-06-26] MEDS: QUEtiapine FUMARATE 100 MG TABLET (FP) PO SCH (21:10)
[2024-06-27] MEDS: QUEtiapine FUMARATE 200 MG TABLET PO SCH (09:57)
[2024-06-27] MEDS: RIFAXIMIN 550 MG TABLET PO SCH (09:57)
[2024-06-27] MEDS: hydrOXYzine PAMOATE 25 MG CAPSULE (FP) PO PRN (12:42)
[2024-06-27] MEDS ORDERED: NICOTINE POLACRILEX 4 MG GUM BUC PRN (13:55)
[2024-06-27] MEDS ORDERED: NICOTINE POLACRILEX 4 MG LOZENGE BC PRN (13:56)
[2024-06-27] MEDS ORDERED: NALTREXONE HCL 50 MG TABLET PO SCH (14:00)
[2024-06-27] MEDS: NICOTINE 21 MG/24 HOURS TOPICAL PATCH TD SCH (15:24)
[2024-06-27] MEDS: NALTREXONE HCL 50 MG TABLET PO SCH (15:24)
[2024-06-27] MEDS: diphenhydrAMINE HCL 25 MG CAPSULE (FP) PO PRN (21:17)
[2024-06-28] MEDS: NALTREXONE HCL 50 MG TABLET PO SCH (10:17)
[2024-06-28 13:25] LABS: HIV INTERPRETATION NEGATIVE (NEGATIVE)
[2024-07-01 10:20] VITALS: RESP 18
[2024-07-01] MEDS: NALTREXONE MICROSPHERES (VIVITROL) 380 MG DISP.SYRIN IM ONE (14:57)
[2024-07-02 07:01] VITALS: BP 135/79; PULSE 107; TEMP 97.3
[2024-07-02] MEDS: NALOXONE (NYS OPIOID OVERDOSE PROGRAM) 4 MG/0.1 ML SPRAY NS SCH (09:00)
== END 2024-07-02 09:20 | disposition home or self-care (01) | DRG 772 ==
LOC: YASAS 14:47 → Y3E 18:08
PROVIDERS: ADMIT Psychiatry & Neurology Pain Medicine; ATTEND Family Medicine Addiction Medicine
PROC: HZ42ZZZ Group Counseling for Substance Abuse Treatment, Cognitive-Behavioral (ICD-10-PCS; principal; 2024-06-18)
DX: F10.20 Alcohol dependence, uncomplicated (principal); F17.210 Nicotine dependence, cigarettes, uncomplicated; F31.81 Bipolar II disorder; F19.280 Other psychoactive substance dependence with psychoactive substance-induced anxiety disorder; F19.282 Other psychoactive substance dependence with psychoactive substance-induced sleep disorder; F19.24 Other psychoactive substance dependence with psychoactive substance-induced mood disorder; I10 Essential (primary) hypertension; M25.561 Pain in right knee; M25.562 Pain in left knee; M54.50 Low back pain, unspecified; G89.29 Other chronic pain; R11.2 Nausea with vomiting, unspecified; R19.7 Diarrhea, unspecified; Z85.038 Personal history of other malignant neoplasm of large intestine; Z99.89 Dependence on other enabling machines and devices; Z88.8 Allergy status to other drugs, medicaments and biological substances
CPT/HCPCS: 36415; 80053; 80307; 81003; 82652; 83735; 85027; 86780; 87389; 93005; 93010